=== PATIENT | male | born 1935 | race Caucasian/White ===

== ENCOUNTER 2016-11-19 05:08 | Inpatient (IN) | payer OTHER, MEDICARE ==
[~2016-11-19] VITALS: Ht 177.8 cm; Wt 101.2 kg
[~2016-11-19 05:08] MED LIST: ESSENTIAL DAIL1 EACH PO; NEURONTIN300 MG PO
[2016-11-19 06:05] VITALS: BP 135/85
[2016-11-19 17:42] VITALS: BP 115/62
[2016-11-19 20:38] VITALS: BP 130/64
[2016-11-20 01:04] VITALS: BP 115/67
[2016-11-20 04:35] VITALS: BP 147/70
[2016-11-20 07:30] VITALS: BP 108/59
== END 2016-11-20 11:14 | disposition home or self-care (01) | DRG 460 ==
LOC: EDBD → 3EAST 05:08 → 2SOUTH 05:08 → 3EAST 16:50
DX: M48.06 Spinal stenosis, lumbar region (principal); M47.812 Spondylosis without myelopathy or radiculopathy, cervical region; M43.16 Spondylolisthesis, lumbar region; Z68.32 Body mass index [BMI] 32.0-32.9, adult; M51.26 Other intervertebral disc displacement, lumbar region; M51.16 Intervertebral disc disorders with radiculopathy, lumbar region; M71.38 Other bursal cyst, other site; G56.20 Lesion of ulnar nerve, unspecified upper limb
CPT/HCPCS: 72100; 76000; 86900; 86901; C1713; J0131; J0330; J0690; J1100; J2270; J2405; J3010; J3370; J3480; S0020